=== PATIENT | male | born 1955 | race Caucasian/White ===

== ENCOUNTER 2017-07-22 10:11 | Emergency (ER) | payer OTHER ==
--- NOTE | 2017-07-22 11:52 | RAD ---
PA AND LATERAL OF THE CHEST: INDICATION: Right-sided chest pain. IMPRESSION: Lungs are clear. Cardiomediastinal silhouette is within normal limits. 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 The examination does not appear appreciably changed from comparison dated 09/28/14. [place]: [facility] [place]
== END 2017-07-22 11:31 | disposition home or self-care (01) ==
LOC: NAV ERS 10:11
DX: M94.0 Chondrocostal junction syndrome [Tietze] (principal); I10 Essential (primary) hypertension; F17.210 Nicotine dependence, cigarettes, uncomplicated
CPT/HCPCS: 71020; 93005; 99406